=== PATIENT | male | born 1990 | race Caucasian/White ===

== ENCOUNTER 2018-06-03 02:01 | Day surgery (SDC) | payer SELFPAY ==
[~2018-06-03] VITALS: Ht 175.3 cm; Wt 82.1 kg
[~2018-06-03 02:01] MED LIST: DIV500 PO; TRAZODONE PO
[2018-06-03] MEDS ORDERED: LIDOCAINE MPF 1% 5 ML VIAL ONE (13:14)
[2018-06-03 15:57] VITALS: BP 137/94
[2018-06-03] MEDS ORDERED: fentaNYL CITR 250 MCG/5 ML AMP ONE (15:59)
[2018-06-03] MEDS ORDERED: PROPOFOL EMUL(*) 10MG/ML 20 ML 20 ML ONE (16:00)
[2018-06-03] MEDS ORDERED: KETAMINE HCL 200 MG/20 ML MDV ONE (16:37)
[2018-06-03] MEDS ORDERED: DEXAMETHASONE SOD PHOS 10MG/ML ONE (16:37)
[2018-06-03] MEDS ORDERED: ONDANSETRON 4 MG/2 ML VIAL ONE (16:37)
[2018-06-03] MEDS ORDERED: LIDOCAINE/SOD BICARB 8.4% SYR ID ONE (16:40)
[2018-06-03] MEDS ORDERED: ceFAZolin(*) 2GM/D5W 50ML 50 ML IVPB ONE (16:40)
[2018-06-03] MEDS ORDERED: CELECOXIB 200 MG CAP PO ONE (16:40)
[2018-06-03] MEDS ORDERED: FAMOTIDINE 20 MG TAB PO ONE (16:40)
[2018-06-03] MEDS ORDERED: NORMOSOL R SOLN(*) 1000 ML BAG 1,000 ML IV PRN (16:40)
[2018-06-03] MEDS ORDERED: MIDAZOLAM 2 MG/2 ML VIAL IVP PRN (16:40)
[2018-06-03] MEDS ORDERED: ROPIVACAINE 0.2% 20 ML VIAL ONE (16:42)
[2018-06-03] MEDS ORDERED: HALOPERIDOL LACT 5 MG/ML VIAL IM ONE (16:47)
[2018-06-03] MEDS ORDERED: fentaNYL CITR 100 MCG/2 ML AMP ONE ×3 (17:56→19:23)
[2018-06-03] MEDS ORDERED: KET10 PO (19:15)
[2018-06-03] MEDS ORDERED: OXYC5CAP21 PO (19:17)
[2018-06-03] MEDS ORDERED: oxyCODONE HCL 5 MG CAP PO PRN (19:20)
[2018-06-03] MEDS ORDERED: KETOROLAC 30 MG/ML VIAL ONE (19:23)
[2018-06-03 20:00] VITALS: BP 149/110
[2018-06-03 20:04] VITALS: BP 136/101
[2018-06-03 20:06] VITALS: BP 143/111
[2018-06-03] MEDS ORDERED: PROMETHAZINE 25 MG/ML 1 ML AMP ONE (20:10)
--- NOTE | 2018-06-04 15:54 | OPERATIVE REPORT 1 ---
EVENT DATE: June 03, 2018 SURGEON: Mejia Locke MD ANESTHESIOLOGIST: Marcus Patel MD ANESTHESIA: General. BLOOD BANK CUSTODIAN: ROSSI Bee PREOPERATIVE DIAGNOSES 1. Right hand proximal fourth metacarpal fracture, oblique and shortened. 2. Fifth metacarpal distal shaft into the neck fracture, comminuted and displaced, extra-articular. POSTOPERATIVE DIAGNOSES 1. Right hand proximal fourth metacarpal fracture, oblique and shortened. 2. Fifth metacarpal distal shaft into the neck fracture, comminuted and displaced, extra-articular. PROCEDURE Open reduction and internal fixation of right hand fourth and fifth metacarpals. IMPLANTS Synthes modular hand tray with two 1.5 mm T plates and nine 1.5 mm screws and three 2.0 mm screws. SPECIMENS None. COMPLICATIONS None. BLOOD LOSS Minimal. OPERATION Patient was brought to the OR after receiving appropriate preoperative antibiotic, and Dr. Patel performed general anesthesia. Right upper arm tourniquet placed. Right upper extremity prepped and draped in the usual sterile fashion and exsanguinated. Tourniquet inflated to 225 mmHg. Made an incision in the fourth web space through skin, then we bluntly dissected down with care taken to protect cutaneous nerve branches. We coagulated veins with bipolar. We the interval between the fourth and fifth extensor tendons, and starting proximally on the fourth metacarpal, we brought the dissection sharply down to bone and then elevated the soft tissues sharply with a Emmanuel elevator to expose the fracture. Debris was removed. This was irrigated. This was closed reduced. We used a 1.5mm T plate. This was seven holes. We cut this. We placed one of the central of the distal four screw holes. The second to most distal was filled with a 1.5 mm screw in standard AO fashion. We then put one screw proximally in standard AO fashion. The third screw from the most distal end we placed in a like fashion, incorporating both portions of the fracture. This further stabilized our fracture. The two other more proximal screw holes were filled in standard AO fashion as well as the most distal screw hole. Screw hole centrally that was second from most proximal was left open as this was over the fracture site. The fracture was satisfactorily reduced. The hardware was in appropriate position. We were irrigating as we went. We went more distally. To obtain our exposure, we had to release the junctura between the fourth and fifth extensor tendons. We were then able to bring exposure directly down to bone from a radial approach to expose the fracture site on the fifth metacarpal distal shaft and neck. There was comminution. We were able to expose this, remove the debris, irrigate it, and another T plate was placed. We were able to place three screws in the most distal three holes, but to achieve appropriate fixation, we used 2.0 mm screws. We then were able to reduce the fracture more easily with the fixation in the head distally, and we filled the three most proximal screw holes with good purchase in standard AO fashion. Again, there was still some comminution, but there was good bony contact, particularly radially. Ulnarly, there was a fragment that was free from the bone, but still attached to the soft tissues, and we incorporated this. We copiously irrigated, closed the junctura with 4-0 Vicryl in [id number] suture fashion. It should be noted that we had visualized the construct in multiple plains and noted no extrusion into the metacarpal head articular cartilage. We then closed the skin with 4-0 Ethilon horizontal mattress fashion, followed by wheal block with ropivacaine. Dressing was applied as well as an ulnar gutter splint in resting fashion. Patient was extubated and taken to Recovery in stable condition. Ice, elevation, nonweightbearing is recommended, along with Tylenol, Toradol, and Oxy IR. MTDD
== END 2018-06-03 19:58 | disposition home or self-care (01) ==
LOC: OR 02:01
PROVIDERS: ATTEND Orthopaedic Surgery
DX: S62.304A Unspecified fracture of fourth metacarpal bone, right hand, initial encounter for closed fracture (principal); S62.326A Displaced fracture of shaft of fifth metacarpal bone, right hand, initial encounter for closed fracture
CPT/HCPCS: 26615; C1713; J1100; J1630; J1885; J2001; J2250; J2405; J2550; J2704; J2795; J3010; J3490; J0690